=== PATIENT | female | born 1990 | race American Indian/Alaskan Native ===

== ENCOUNTER 2019-07-12 00:03 | Inpatient (IN) | payer MEDICAID, OTHER ==
[~2019-07-12 00:03] MED LIST: Acetaminophen 325 MG Tab PO PRN; Carboprost Tromethamine 250 MCG/1 ML Amp IM PRN; Lidocaine 1% 30 ML SDV INJECT PRN; Methylergonovine 0.2 MG/1 ML Amp IM PRN; Misoprostol 400 MCG (4 X 100 MCG TAB) RECTAL PRN; Oxytocin/Normal Saline 30 UNIT/500 ML BAG IV SCH; Sodium Chloride 0.9% 10 ML Syringe FLUSH PRN; Tranexamic Acid 1,000 MG in Sodium Chloride 0.9% 100 ML IV PRN
[2019-07-12] MEDS: Misoprostol 25 MCG (1/4 of 100 MCG) Tab VAG PRN ×4 (01:40→21:03)
--- NOTE | 2019-07-12 02:19 | OBOUT ---
DATE: 07/12/2019 TIME OF NST: 39 to 54. REASON FOR NST: 1. Intrauterine at 39 weeks by 6-2/7 week's ultrasound. 2. Gestational diabetes mellitus. 3. GBS negative. 4. Rubella nonimmune. 5. G1, P0. NST INTERPRETATION: During this time period, heart tone baseline is approximately 145 to 150 and at least two 15 x 15 beats per minute accelerations noted in a broken pattern making this strip reactive as well as also noted to be reassuring. Tocometer reveals potential of 1 contraction not felt by patient. ASSESSMENT: 1. Nonstress test, reactive and reassuring. 2. Tocometer with 1 contraction, not felt by the patient. PLAN: Please see admit history and physical done through [facility] for this. Records were called for and reviewed and supplemented by patient history as well as review of systems fully reviewed and felt to be noncontributory as noted. Blood pressure 116/70, heart rate 88, temperature 97. Shortly after NST was performed, vaginal exam revealed to be finger tip, 56% effaced, -1, -2 station, vertex suspected, and Cytotec 25 mcg was placed vaginally. Of note, blood sugar was 81 upon admission. Please see admit history and physical for other details as well. Continue with Cytotec and following clinically and closely. [facility] /[id number]
[2019-07-12] MEDS: Oxytocin/Normal Saline 30 UNIT/500 ML BAG IV SCH (12:55)
[2019-07-12] MEDS: Lactated Ringers 1,000 ML IV SCH (12:59)
[2019-07-12] MEDS ORDERED: hydrOXYzine HCl 25 MG Tab PO PRN (21:23)
[2019-07-12] MEDS: hydrOXYzine HCl 25 MG Tab PO PRN (23:24)
[2019-07-13] MEDS: Misoprostol 25 MCG (1/4 of 100 MCG) Tab VAG PRN ×4 (01:19→13:30)
--- NOTE | 2019-07-13 09:45 | PN ---
DATE: 07/12/2019 SUBJECTIVE: The patient feels her contractions, lower abdomen and back region, rates them 5 to 6 out of 10. Pitocin was started and is at 4 milliunits per minute currently. heart tones in the 140s range and felt to be reactive and reassuring. Tocometer reveals, when reading, contractions every 1-1/2 to 3 minutes apart. Vaginal exam reveals her to be 1.5 cm, 60% effaced, negative 1 station, vertex suspected, and bag of water felt. ASSESSMENT AND PLAN: Intrauterine at 39 weeks by 6-2/7 weeks' ultrasound, complicated by gestational diabetes mellitus, now status post Cytotec x2 and then some low-dose Pitocin today. We will proceed with stopping the Pitocin to see if contractions slow down and consider repeat Cytotec dosing. This was discussed with the patient. She understands and agrees with the above treatment plan. [facility] /[id number]
--- NOTE | 2019-07-13 11:07 | PCM.PREANE ---
Preanesthetic Assessment - Anesthesia/Transfusion/Family Hx Anesthesia History: No Prior Anesthesia Family History of Anesthesia Reaction: No Transfusion History: No Prior Transfusion(s) - Review of Systems General: No Symptoms, Other Pulmonary: No Symptoms Cardiovascular: No Symptoms Gastrointestinal: No Symptoms Neurological: No Symptoms Other: Reports: None - Physical Assessment NPO Status Date: 07/13/19 NPO Status Time: 08:00 Vital Signs: Last Vital Signs Temp 98.7 F 07/13/19 08:16 Pulse 72 07/13/19 09:35 Resp 18 07/13/19 09:35 BP 120/65 07/13/19 09:35 Pulse Ox Height: 5 ft 1 in Weight: 210 lb (BMI= 41.0) ASA Class: 3 Mental Status: Alert & Oriented x3 Airway Class: Mallampati = 3 Dentition: Reports: Normal Dentition Thyro-Mental Finger Breadths: 3 Mouth Opening Finger Breadths: 3 ROM/Head Extension: Full Lungs: Clear to Auscultation Cardiovascular: Regular Rate - Lab Values: Laboratory Last Values WBC 10.9 10^3/uL (5.0-10.0) H 07/12/19 01:18 RBC 3.81 10^6/uL (4.2-5.4) L 07/12/19 01:18 Hgb 11.5 g/dL (12.0-16.0) L 07/12/19 01:18 Hct 34.8 % (37.0-47.0) L 07/12/19 01:18 MCV 91.3 fL (80-100) 07/12/19 01:18 MCH 30.2 pg (27.0-34.0) 07/12/19 01:18 MCHC 33.0 g/dL (33.0-35.0) 07/12/19 01:18 Plt Count 338 10^3/uL (150-450) 07/12/19 01:18 POC Glucose 84 mg/dl (70-105) 07/13/19 07:46 SARS-CoV-2 RNA (RT-PCR) Negative (NEGATIVE) 07/12/19 00:20 - Allergies Allergies/Adverse Reactions: Allergies Allergy/AdvReac Type Severity Reaction Status Date / Time No Known Allergies Allergy Verified 07/12/19 01:04 - Anesthesia Plan Free Text/Narrative:: SAB - Acknowledgements Anesthesia Type Planned: Spinal Pt an Appropriate Candidate for the Planned Anesthesia: Yes Alternatives and Risks of Anesthesia Discussed w Pt/Guardian: Yes Pt/Guardian Understands and Agrees with Anesthesia Plan: Yes PreAnesthesia Questionnaire Genitourinary History: Reports: Renal Calculus, Other (See Below) Other Genitourinary History: kidney stones- laser 2010 [employer] 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: Endocrine/Metabolic History: Reports: Diabetes, Type II ( related) - Past Surgical History HEENT Surgical History: Reports: Oral Surgery, Other (See Below) Other HEENT Surgeries/Procedures: wisdom teeth removed 2017 - SUBSTANCE USE Smoking Status *Q: Former Smoker Tobacco Use Within Last Twelve Months: Cigarettes Recreational Drug Use History: No - HOME MEDS Home Medications: Home Meds Pnv No.95/Ferrous Fum/Folic AC [ Caplet] 1 tab PO DAILY 07/02/19 [ History] - CURRENT (IN HOUSE) MEDS Current Meds: Current Medications Acetaminophen (Tylenol) 650 mg PO Q4H PRN PRN Reason: Pain (Mild 1-3) and fever Acetaminophen (Tylenol) 650 mg PO Q4H PRN PRN Reason: Pain/Fever Carboprost Tromethamine (Hemabate Ds) 250 mcg IM ASDIRECTED PRN PRN Reason: HEMORRHAGE Hydroxyzine HCl (Atarax) 50 mg PO Q6H PRN PRN Reason: Itching Last Admin: 07/12/19 23:24 Dose: 50 mg Lactated Ringer's (Ringers, Lactated) 1,000 mls @ 125 mls/hr IV ASDIRECTED GERA Last Admin: 07/12/19 12:59 Dose: 125 mls/hr Oxytocin/Sodium Chloride (Pitocin In Ns 30 Unit/500 Ml) 30 unit in 500 mls @ 2 mls/hr IV TITRATE GERA; Protocol Last Titration: 07/12/19 16:40 Dose: 0 mls/hr Oxytocin/Sodium Chloride (Pitocin In Ns 30 Unit/500 Ml) 30 unit in 500 mls @ 2 mls/hr IV TITRATE GERA; Protocol Tranexamic Acid 1,000 mg/ (Sodium Chloride) 110 mls @ 660 mls/hr IV ONETIME PRN PRN Reason: Bleeding Lidocaine HCl (Xylocaine-Mpf 1%) 30 ml INJECT ASDIRECTED PRN PRN Reason: Perineal Repair Methylergonovine Maleate (Methergine) 0.2 mg IM ASDIRECTED PRN PRN Reason: Hemorrhage Misoprostol (Cytotec) 800 mcg RECTAL ASDIRECTED PRN PRN Reason: Hemorrhage Misoprostol (Cytotec) 25 mcg VAG Q4H PRN PRN Reason: cervical ripening Last Admin: 07/13/19 09:35 Dose: 25 mcg Ondansetron HCl (Zofran) 4 mg IVPUSH Q4H PRN PRN Reason: Nausea/Vomiting Sodium Chloride (Saline Flush) 10 ml FLUSH ASDIRECTED PRN PRN Reason: Keep Vein Open Discontinued Medications Lactated Ringer's (Ringers, Lactated) 1,000 mls @ 500 mls/hr IV BOLUS ONE Stop: 07/12/19 02:00
--- NOTE | 2019-07-13 11:53 | PN ---
DATE: 07/13/2019 SUBJECTIVE: The patient has been feeling her contractions throughout the night. She has been sleeping through some, other times, they wake her up, felt in the upper abdomen, lower abdomen and back. OBJECTIVE: VITAL SIGNS: Last night vitals, temperature 97.6, heart rate 64, blood pressure 120/76. Blood sugar was recently at 84, this morning fasting. VAGINAL: Reveals her to be 1.5 cm, 70% effaced, -1 to -2 station, vertex suspected, and essentially unchanged from the night before. ASSESSMENT AND PLAN: Term now at 39-1/7 weeks by 6-2/7 week ultrasound, complicated by gestational diabetes mellitus, GBS negative, rubella nonimmune, and G1, P0. The patient is now status post Cytotec x4, yesterday 2 since midnight on the , and most likely we will repeat another Cytotec 1 to 2 times today if need be based on how well she does with contractions and if she continues to have contractions or not. The patient also did receive some Pitocin yesterday, low-dose to see if this would help and we will continue to follow closely at this point in time. I did discuss with the patient limited change in her cervix, max dose of 8 doses of Cytotec per our order set and following closely at this point in time with limited change overnight despite these interventions. She understands and agrees and we will continue to follow clinically and closely at this point in time. [facility] /[id number]
[2019-07-13] MEDS: Lactated Ringers 1,000 ML IV SCH ×2 (17:19→23:38)
[2019-07-13] MEDS: hydrOXYzine HCl 25 MG Tab PO PRN (20:46)
[2019-07-13] MEDS: fentaNYL 100 MCG/2 ML SDV IVPUSH PRN ×2 (22:09→23:37)
[2019-07-13] MEDS: Ondansetron 4 MG/2 ML SDV IVPUSH PRN (23:13)
[2019-07-14] MEDS: fentaNYL 100 MCG/2 ML SDV IVPUSH PRN (00:39)
--- NOTE | 2019-07-14 01:02 | PN ---
DATE: 07/14/2019 SUBJECTIVE: The patient's contractions are getting stronger. She is breathing through them. Lying on her side. I was called by nurses for difficulty detecting heart tones and contractions with position of comfort for the patient. Pitocin at 12 milliunits per minute. OBJECTIVE: Vital Signs: Blood pressure 125/63. General Appearance: Lying on her side, breathing through contractions, but answering questions appropriately in between. heart tones in the 120s to 130s range, and accelerations noted with vaginal exam and evaluation thereafter. Tocometer, difficulty reading contractions with patient lying on her side. Vaginal exam reveals her to be 2 cm, 95% effaced, 0 station, vertex suspected, and IUPC and scalp electrode applied and inserted after discussion with patient. ASSESSMENT: Now interim at 39 and 2/7 weeks by 6-2/7 weeks' ultrasound. Gestational diabetic. GBS negative. Rubella nonimmune. G1, P0. With meconium-stained fluid. Now status post Cytotec x8, Pitocin augmentation, artificial rupture of membranes, and IUPC and FSE as above. PLAN: Internal monitors have been applied. We will continue to follow clinically and closely at this point in time. Determine MVUs, continue Pitocin augmentation, and follow closely. Pain medicines have been ordered as well. [facility] /[id number]
[2019-07-14] MEDS: Lactated Ringers 1,000 ML IV SCH ×8 (02:09→21:50)
[2019-07-14] MEDS ORDERED: EPINEPHrine 1 MG/1 ML Amp ONE ×2 (02:23→09:55)
--- NOTE | 2019-07-14 02:58 | PCM.PRNOTE ---
- Free Text/Narrative Note: IT Consent confirmed. 022 Room. Sitting position. Time out completed. Questions answered. Back prepped with betadine NSF Lidocaine 1% skin wheal L3/4 times 1 +CSF - HEME - Parasthesia 0.8cc Marcaine 0.75% Precedex 10 mcg Sufenta 15 mcg Epi 0.1 Normal saline 0.7mL Excellent result. Pt. tolerated well. Complete 232. All sharps accounted for and disposed of Lot#[id number] EXP [id number]
[2019-07-14] MEDS ORDERED: ePHEDrine 50 MG/ML SDV ONE (03:02)
--- NOTE | 2019-07-14 08:27 | PN ---
DATE: 07/13/2019 SUBJECTIVE: The patient is still feeling her contractions. They feel a little bit worse, felt in the lower abdomen. Pitocin has been started at approximately 5:30 p.m. tonight, 4 hours after her 8th dose of Cytotec during this stay. OBJECTIVE: heart tones in the 130s to 140s range. Acceleration noted with vaginal exam. Tocometer reveals contractions every 2 to 3 minutes at the current time. Vaginal exam does reveal her to be 1.5 cm, 60% to 75% effaced, 0 to negative 1 station, vertex suspected, and artificial rupture of membranes done after discussion with the patient yielding copious amounts of meconium- stained fluid. ASSESSMENT: Intrauterine now at 39-1/7 weeks by 6-2/7 weeks' ultrasound, complicated by gestational diabetes mellitus with sugars fasting, and upon admission being under control in a group B Streptococcus negative, G1, P0, rubella nonimmune status, with now newly diagnosed meconium-stained fluid. PLAN: We will follow closely at this point in time and did discuss with the patient following maternal and status closely and did discuss diagnosis, prognosis in regard to meconium-stained fluid, and we will continue to follow up closely at this point in time. The patient understands and agrees with the above treatment plan. We will continue Pitocin, and as she is requesting something for pain in the future, we will write for fentanyl. [facility] /[id number]
[2019-07-14] MEDS: Lactated Ringers 1,000 ML IV ONE ×2 (08:29→09:29)
[2019-07-14] MEDS: Ondansetron 4 MG/2 ML SDV IVPUSH PRN ×2 (09:32→22:30)
[2019-07-14] MEDS ORDERED: Sodium Chloride 0.9% 10 ML Syringe ONE (09:56)
--- NOTE | 2019-07-14 10:47 | PCM.PRNOTE ---
- Free Text/Narrative Note: IT in room 0955 Time out complete Back prepped and draped NSF with betadine Lidocaine skin wheal 1% IT @ L 3/4 24ga 4 inch +CSF - HEME - parathesia patient tolerated well All needles accounted for and disposed. Procedure completed at 1012
[2019-07-14] MEDS ORDERED: ceFAZolin 2 GM in Premix Bag 1 BAG IV ONE (14:41)
[2019-07-14] MEDS ORDERED: Citric Acid/Sodium Citrate Solution 30 ML Cup PO ONE (14:41)
[2019-07-14] MEDS ORDERED: diphenhydrAMINE 50 MG/ML SDV IVPUSH PRN (14:42)
[2019-07-14] MEDS ORDERED: Acetaminophen/oxyCODONE 325-5 MG Tab PO PRN (14:42)
[2019-07-14] MEDS ORDERED: Naloxone 2 MG/2 ML Syringe IVPUSH PRN (14:42)
[2019-07-14] MEDS ORDERED: ePHEDrine 50 MG/ML SDV IVPUSH PRN (14:42)
[2019-07-14] MEDS ORDERED: Methylergonovine 0.2 MG/1 ML Amp IM PRN (14:42)
[2019-07-14] MEDS ORDERED: Oxytocin/Normal Saline 30 UNIT/500 ML BAG ONE ×2 (14:43→14:46)
[2019-07-14] MEDS ORDERED: Ketorolac 30 MG/ML SDV IVPUSH SCH ×2 (14:45→22:00)
[2019-07-14] MEDS ORDERED: Lactated Ringers 1,000 ML IV SCH (14:45)
[2019-07-14] MEDS ORDERED: Rocuronium 100 MG/10 ML MDV ONE (14:46)
[2019-07-14] MEDS ORDERED: Propofol 200 MG/20 ML SDV ONE (14:46)
[2019-07-14] MEDS ORDERED: Succinylcholine 200 MG/10 ML MDV ONE (14:46)
[2019-07-14] MEDS ORDERED: Methylergonovine 0.2 MG/1 ML Amp ONE (15:15)
[2019-07-14] MEDS ORDERED: Carboprost Tromethamine 250 MCG/1 ML Amp ONE (15:15)
[2019-07-14] MEDS ORDERED: Misoprostol 400 MCG (4 X 100 MCG TAB) ONE (15:19)
[2019-07-14] MEDS: Oxytocin/Normal Saline 30 UNIT/500 ML BAG IV SCH (16:15)
[2019-07-14] MEDS ORDERED: EPINEPHrine 1 MG/ML SDV ONE (16:35)
[2019-07-14] MEDS ORDERED: Dexmedetomidine 200 MCG/2 ML SDV IV ONE (16:35)
[2019-07-14] MEDS ORDERED: Dexmedetomidine 200 MCG/2 ML SDV ONE (16:36)
[2019-07-14] MEDS ORDERED: Ketorolac 30 MG/ML SDV IVPUSH ONE (17:30)
[2019-07-14] MEDS: Simethicone 80 MG Tab.Chew PO SCH ×2 (17:32→20:17)
[2019-07-14] MEDS: cefTRIAXone 1 GM in Sodium Chloride 0.9% 50 ML IV SCH (18:07)
--- NOTE | 2019-07-14 19:36 | PN ---
DATE: 07/14/2019 SUBJECTIVE: The patient is sleeping after her intrathecal. OBJECTIVE: heart tones in the 130s to 140s range. There are some decelerations that appear to be early in nature occasionally with contractions and some variables as well. IUPC is reading 145s to 140s MVUs on average. Vaginal exam reveals her to be complete, 0 station, vertex suspected with marked caput. ASSESSMENT: Second stage of labor in a G1, P0, intrauterine at 39 and 2/7 weeks complicated by gestational diabetes mellitus, being rubella nonimmune and having meconium-stained fluid. PLAN: We will continue with Pitocin for adequate MVU views and consider pushing in the near future. I did discuss with her entering the second stage of labor at this point in time. [facility] /[id number] MTDHayder
[2019-07-14] MEDS: hydrOXYzine HCl 25 MG Tab PO PRN (20:15)
[2019-07-14] MEDS ORDERED: fentaNYL 100 MCG/2 ML SDV IVPUSH ONE (22:22)
[2019-07-14] MEDS: Ketorolac 30 MG/ML SDV IVPUSH SCH (23:20)
[2019-07-15] MEDS: Acetaminophen/oxyCODONE 325-5 MG Tab PO PRN ×5 (00:37→20:45)
[2019-07-15] MEDS: Lactated Ringers 1,000 ML IV SCH ×3 (00:38→17:18)
[2019-07-15] MEDS ORDERED: fentaNYL 100 MCG/2 ML SDV IVPUSH ONE (02:46)
[2019-07-15] MEDS: hydrOXYzine HCl 25 MG Tab PO PRN (02:54)
[2019-07-15] MEDS: Ketorolac 30 MG/ML SDV IVPUSH SCH ×2 (05:35→11:50)
--- NOTE | 2019-07-15 08:04 | PN ---
DATE: 07/15/2019 Postop day #1. SUBJECTIVE: The patient has tolerated some liquids through the night. She has had some pain medications to help with her abdominal pain. She is unsure she has been passing flatus. Block is still in place. OBJECTIVE: Vital Signs: Temperature 99.2, heart rate 128, blood pressure 113/60, respiratory rate 16. Lungs: Clear to auscultation bilaterally. Heart: S1, S2. Regular rate and rhythm at this time. Abdomen: Firm uterus, -1 to -2 below umbilicus. Aquacel dressing dry and intact. SCDs and RIDGE hose are on. LABORATORY DATA: Last night, at approximately 10 p.m., white cell count 12.7, hemoglobin 9.4, platelets 206. This morning, white cell count 16.5, hemoglobin 9.1, and platelets are 182. Compared to predelivery, hemoglobin 11.5 and platelets are 338. Urine output has been followed closely. She did require some boluses through the night. Last urine output listed from 4 to 6 a.m. was 100 mL. ASSESSMENT: Postop day #1, status post primary low transverse complicated by hemorrhage with an EBL of 1200 mL. Uterine atony requiring Methergine, Hemabate, and Cytotec with a nonreassuring status and suspected uterine rupture, small, which was reviewed with MEDICINE AIDE/Dr. Waller. He has recommended that the patient is not a candidate and next should be delivered at 37 weeks or when in labor or deliver sooner. This was discussed with the patient and her male partner again today and was discussed with them last night. PLAN: We will continue to follow clinically and closely. Work on ambulation, incentive spirometry today, and watch urine output as well. The patient understands and agrees with the above treatment plan. [facility] /[id number]
[2019-07-15] MEDS: Ferrous Sulfate 325 MG Tab PO SCH (08:11)
[2019-07-15] MEDS: Prenatal Multivitamin with Calcium/Folic Acid/Iron Tab PO SCH (08:11)
[2019-07-15] MEDS: Simethicone 80 MG Tab.Chew PO SCH ×4 (08:11→20:46)
--- NOTE | 2019-07-15 08:25 | PN ---
DATE: 07/14/2019 SUBJECTIVE: The patient has been pushing now for over 2 hours. I was called in urgently for concerns with a deceleration in the heart rate. OBJECTIVE: heart tone baseline now is in the 160s to 170s. Prior to this, was in the 160s range and there was a 10-minute deceleration. During this time period, Pitocin was turned off. Lactated Ringer bolus was given. Oxygen had been started, and there was a return to baseline. Previous review of some of the strip does reveal possibility of 2 subtle late decelerations around 1350 hours. Vaginal exam reveals her to be complete with marked caput and no descent noted from previous evaluation when she started the second stage of labor around noon. Tocometer reveals contractions every couple of minutes. ASSESSMENT: Intrauterine now at 39 and 2/7 weeks by 6 and 2/7 weeks with nonreassuring status as evidenced by late decelerations, tachycardia, and a 10-minute deceleration and noted to have almost 18 hours since artificial rupture membranes and nearing 3 hours in the second stage of labor with intrathecal worn off. I did discuss with patient and her male partner proceeding with primary low transverse section. I did discuss with them the risks, benefits, alternatives, and complications of section, including, but not limited to, infection, bleeding, damage to internal organs such as bowel, bladder, tubes, uterus, ovaries, and sometimes fetus, rarely needing a blood transfusion or further surgery, and even rarer maternal or . She understands, agrees, and wishes to proceed. Verbal and written consents were obtained and questions were answered. We will proceed as soon as the OR crew is ready and available. Due to her gestational diabetes mellitus, we will check a blood sugar before we go to the operating room. Her sugars have been controlled while she has been in the hospital. She is GBS negative, has meconium-stained fluid, and is rubella nonimmune in a primip for her other risk factors. Last blood pressure 142/78, heart rate 104. She is breathing through her contractions and pain during this time period. PLAN: We will proceed to the OR as soon as crew is ready and available. Please see above. The patient and her male partner understand and agree. [facility] /[id number]
--- NOTE | 2019-07-15 08:46 | OR ---
DATE: 07/14/2019 PREOPERATIVE DIAGNOSES: 1. Intrauterine at 39-2/7 weeks by 6-2/7-week ultrasound. 2. Nonreassuring status. 3. Meconium-stained fluid. 4. Nearing prolonged second stage of labor. 5. Rupture of membranes greater than 18 hours. 6. Gestational diabetes mellitus. 7. Group B Streptococcus negative. 8. Rubella nonimmune. 9. G1, P0. POSTOPERATIVE DIAGNOSES: 1. Intrauterine at 39-2/7 weeks by 6-2/7-week ultrasound-delivered. 2. Nonreassuring status. 3. Meconium-stained fluid. 4. Nearing prolonged second stage of labor. 5. Rupture of membranes greater than 18 hours. 6. Gestational diabetes mellitus. 7. Group B Streptococcus negative. 8. Rubella nonimmune. 9. G1, P0. 10. hemorrhage with estimated blood loss of 1200 mL. 11.Hematuria prior to start of the surgery, clearing at the end of the surgery. 12.Uterine wall abnormality with meconium-stained fluid traversing through what appeared to be the broad ligament, posterior wall, lining wall of the uterus, and over lower uterine segment with mild blood clot in this area. discussed with Dr. Waller air carrier inspector after the case and suspect small uterine rupture 13.Right lateral sulcus tear. 14.Nuchal cord x1, tight, that was reduced bluntly with delivery. 15.Uterine atony, requiring Methergine, Hemabate, and Cytotec. 16.Small uterine rupture 17.Right lateral sulcus tear 18.NOT A CANDIDATE WITH RECOMMENDATION TO DELIVER AT 37 WEEKS OR WITH LABOR WHICHEVER COMES FIRST WITH REPEAT SECTION WITH NEXT DELIVERY-DISCUSSED WITH PATIENT, HER PARENTS AND MALE PARTNER PROCEDURE PERFORMED: Leading up to the surgery, nonstress test followed by Cytotec x4, and Pitocin augmentation on 07/12/2019, followed by 4 doses of Cytotec on 07/13/2019 with Pitocin continued through date of surgery. Artificial rupture membranes on 07/13/2019. Intrauterine pressure catheter and scalp electrode placed on 07/14/2019. All per Dr. De La Paz. This was followed by procedure below of primary low-transverse section and repair of right lateral sulcus tear incorporated in the lower uterine segment repair. PEDIATRIC CLINICAL DIETICIAN: Steph Rosa MD, and then Luciana Rosales MD, called in for further evaluation and assistance. ANESTHESIA: Spinal. ESTIMATED BLOOD LOSS: 1200 mL. IV FLUIDS: 400 mL. URINE OUTPUT: 75 mL and clearing from initial hematuria noted when arriving to the OR throughout the surgery timeline START: 1509 UTERINE: 1512 DELIVERY: 1512 STOP: 1605 FINDINGS:Female APGARS 5,7, and 8, weight 2700 grams and findings as noted above and below and suspect small uterine rupture after discussing case with dr. waller. pictures attached to chart. DESCRIPTION OF PROCEDURE: After proper consent was obtained, the patient was brought to the operating room where spinal anesthetic was administered. Block was placed in preop under sterile conditions. Hematuria was noted with this. It was grossly red and clearing throughout the case over time. Abdomen was prepped and draped in normal sterile fashion using Betadine for timeliness, and the patient was placed in supine position with left lateral tilt. A skin incision was then made over lower abdomen in a transverse Pfannenstiel- type fashion. This was carried down the fascia and scored in the midline. Subcutaneous tissue raked laterally with Carolina retractor, and fascial incision was extended in transverse fashion using curved Tsai's. Kalli clamps x2 were used to grasp the superior aspect of the fascia, and rectus muscles were dissected from the fascia using sharp and blunt technique. In a similar fashion, Kalli clamps were used to grasp the inferior portion of the incision, and rectus and pyramidalis muscle were dissected from fascia using sharp and blunt technique. Rectus muscles were in the midline with blunt technique. Abdominal cavity was entered in blunt technique, and incision was extended superiorly and inferiorly with blunt technique. Nico O large retractor was then introduced and used. Over the region of lower uterine segment and right lateral portion of the uterus on this side, there was noted to be suspected thin lower uterine segment with window that appeared dark in nature as if vertex was through there as well as meconium fluid. Incision was made on the lower uterine segment around this area. Meconium-stained fluid returned as well as some mild blood clot, and there was a second layer below this, that was the lower uterine segment. This was incised, and uterus was entered sharply. Meconium-stained fluid continued to present. Uterine incision was then extended in a transverse fashion using blunt technique. vertex was then delivered up from the pelvis and brought through the incision, followed by rest of the infant with a nuchal cord x1 that was tight and reduced bluntly with delivery. Mouth and nares were suctioned. Cord was doubly clamped and cut, and infant was brought to team for resuscitation. Then, approximately 10 mL of cord blood was obtained for labs. Placenta then delivered with gentle cord traction and fundal massage without difficulty. Uterine cavity was then cleared of all blood clots and debris with lap sponge. It was then noted that there appeared to be traversing meconium- stained fluid in the peritoneal/serosal layer around the uterus into the broad ligament region and posteriorly on the right side. Pictures were taken and will be attached to the chart when available. Dr. Rosales was called at this time due to the abnormalities noted, and she donned sterile gown and gloves, and assisted with the remainder of the surgery as well as Dr. Romero who was already present. Careful evaluation of the uterus did reveal posteriorly, felt on the right there was a thinning area, but the integrity of the uterus was noted throughout the wall that as best could be discerned other than over this posterior right uterine horn region which felt intact. Care was made not to disrupt these areas where meconium- stained fluid was in a plane around the uterus and broad ligament region on the right. Uterine incision on the right side was then noted to have a right lateral sulcus tear and was deep, and with assistance, corner was evaluated, located, and a stitch was applied under direct visualization over this area. The sulcus tear was then repaired using 1-0 Vicryl and brought to the lower uterine incision, where repair was incorporated into the uterine incision repair and required 1-0 Vicryl with 2 needles/stitch sets. Uterine atony was noted, and Methergine, Hemabate, and 800 mcg of Cytotec were given with 800 mcg given rectally and the other medicines given intramuscularly. Please see anesthesia's notes as well Thereafter, further evaluation of the right lateral sulcus region revealed some minimal bleeding. [id number] stitch was applied where bleeding was noted, and bleeding was significantly slowed. Despite this, there was some minimal oozing, and therefore Surgicel was called for and applied over this area. Minimal bleeding was noted thereafter. During this time period with inspection of the uterus, it was exteriorized. Nico O retractor was removed, and we did use bladder blade and Carolina retractors as well as blunt retractors with fingers for evaluation of the uterine anatomy. Before uterus was returned to the abdomen, initially there was only minimal bleeding over right lateral sulcus region. Irrigation ensued after uterus was returned to the abdomen, and minimal bleeding was noted over the right lateral sulcus tear. . [id number] stitch was applied over this area. Bleeding had all but stopped with minimal oozing, and Surgicel was applied over this area, and bleeding was decreased thereafter and clotting was noted. Third and final inspection of uterine incision and anterior cul-de-sac revealed hemostasis. Rectus muscles were then evaluated and present in the midline and came together well. Subsequently, subfascial tissue was found to be hemostatic. Fascia closed in a running fashion and tied at lateral margin with 0 looped PDS. Subcutaneous tissue was irrigated copiously and hemostasis reassured. Skin was reapproximated with medium nohelia. Sterile Aquacel dressing was applied. Uterine fundus was firm and massaged at the conclusion of the case at -2 below the umbilicus. Sponge, lap, and needle counts were correct. The patient received 2 g of Ancef preoperatively. Received Pitocin per protocol, will receive Toradol at the conclusion of the case for pain control, and will receive prophylactic antibiotics due to the nature of her sulcus tear and extended evaluations. Mother and are currently stable at the time of dictation. [facility] /[id number] MTDD
--- NOTE | 2019-07-15 08:49 | OR ---
DATE: 07/14/2019 ADDENDUM: POSTOPERATIVE DIAGNOSIS: Discussed the case with Dr. Waller, suspect uterine rupture-small with recommendation to deliver at 37 weeks with next delivery, not allowed to labor, and is NOT A CANDIDATE. Call made with Dr. Waller to discuss the case and he suspects that this was a small uterine rupture with meconium-stained fluid traversing the plane around the uterus superficially on the right side posteriorly and over the lower uterine segment region. For further delivery did discuss with father recommending seeing an TYPEWRITER RIBBON WINDER prior to becoming for evaluation as well as with her next seeing an TYPEWRITER RIBBON WINDER for further evaluation and management. Plans will be discussed with the patient and plans were discussed with father and questions were answered. [facility] /[id number]
[2019-07-15] MEDS ORDERED: Measles, Mumps & Rubella Vaccine 0.5 ML SDV SUBCUT ONE (09:00)
--- NOTE | 2019-07-15 09:36 | PCM48HPAN ---
Post Anesthesia Note - EVALUATION WITHIN 48HRS OF ANESTHETIC Vital Signs in Normal Range: Yes Patient Participated in Evaluation: Yes Respiratory Function Stable: Yes Airway Patent: Yes Cardiovascular Function Stable: Yes Hydration Status Stable: Yes Pain Control Satisfactory: Yes Nausea and Vomiting Control Satisfactory: Yes Mental Status Recovered: Yes Vital Signs: Last Vital Signs Temp 97.9 F 07/15/19 08:00 Pulse 114 H 07/15/19 08:00 Resp 18 07/15/19 08:00 BP 115/56 L 07/15/19 08:00 Pulse Ox 96 07/15/19 08:00
[2019-07-15] MEDS: Docusate Sodium 100 MG Cap PO PRN ×2 (09:57→19:37)
[2019-07-15] MEDS: cefTRIAXone 1 GM in Sodium Chloride 0.9% 50 ML IV SCH (16:44)
[2019-07-15] MEDS: Ibuprofen 800 MG Tab PO PRN (19:38)
[2019-07-16] MEDS: Acetaminophen/oxyCODONE 325-5 MG Tab PO PRN ×3 (01:13→19:45)
[2019-07-16] MEDS: Ibuprofen 800 MG Tab PO PRN ×3 (05:09→21:23)
--- NOTE | 2019-07-16 08:36 | PN ---
DATE: 07/16/2019 Postop day #2, status post primary low transverse complicated by hemorrhage, uterine atony, right lateral sulcus tear, and small uterine rupture. SUBJECTIVE: The patient is tolerating p.o.'s, ambulating, urinating, passing flatus. She has had some tachycardia noted throughout the night. OBJECTIVE: Vital Signs: Last set of vitals: Temperature 98, heart rate between 92 and 102, blood pressure 105/62. Appearance: No apparent distress. Sitting upright. Lungs: Clear to auscultation bilaterally. Heart: S1, S2. Regular rate and rhythm. Minor tachycardia noted, however. Abdomen: Firm uterus -1 to -2 below umbilicus. Aquacel dressing appears dry and intact. Her SCD hose are on. LABORATORY DATA: Reveals a white cell count of 12.8, hemoglobin dropped down to 7.7, platelets of 187. Predelivery hemoglobin was 11.5. Hemoglobin yesterday was 9.1. ASSESSMENT AND PLAN: 1. Postoperative day #2, status post primary low transverse section. 2. hemorrhage with an Estimated blood lossof 1200 mL complicated by uterine atony and a small uterine rupture. 3. Anemia, acute blood loss. Hemoglobin has dropped down to 7.7. I believe the previous hemoglobins were falsely elevated due to her concentrated status while she was having decreased urine output and required multiple boluses. Now that it has equilibrated over a period of time, her hemoglobin is down to 7.7, and with her tachycardia, will recommend proceeding with transfusion of 2 units of packed red blood cells. I did discuss the risks, benefits, alternatives, complications of this. She understands and agrees and wishes to proceed. Verbal and written consents were obtained. Questions were answered. We will proceed with 2 units of packed red blood cells and repeat hemoglobin approximately 6 hours after that and in the morning tomorrow and plan on potential discharge tomorrow if stable. The patient understands and agrees with the above treatment plan. [facility] /[id number]
[2019-07-16] MEDS: Prenatal Multivitamin with Calcium/Folic Acid/Iron Tab PO SCH (09:29)
[2019-07-16] MEDS: Docusate Sodium 100 MG Cap PO PRN ×2 (09:29→19:44)
[2019-07-16] MEDS: Ferrous Sulfate 325 MG Tab PO SCH (09:34)
[2019-07-16] MEDS: Simethicone 80 MG Tab.Chew PO SCH ×4 (09:34→21:23)
[2019-07-16] MEDS ORDERED: Oxytocin/Normal Saline 30 UNIT/500 ML BAG IV ONE (11:23)
[2019-07-17] MEDS: Acetaminophen/oxyCODONE 325-5 MG Tab PO PRN (04:14)
[2019-07-17] MEDS: Simethicone 80 MG Tab.Chew PO SCH (08:43)
[2019-07-17] MEDS: Ibuprofen 800 MG Tab PO PRN (08:43)
[2019-07-17] MEDS: Prenatal Multivitamin with Calcium/Folic Acid/Iron Tab PO SCH (08:43)
[2019-07-17] MEDS: Ferrous Sulfate 325 MG Tab PO SCH (08:43)
[2019-07-17] MEDS: Docusate Sodium 100 MG Cap PO PRN (08:43)
--- NOTE | 2019-07-17 12:47 | DISCH ---
ADMIT DIAGNOSES: 1. Intrauterine at 39 weeks by 6-2/7 weeks, delivered at 39 and 2/7 weeks. 2. Gestational diabetes mellitus. 3. GBS negative. 4. Rubella nonimmune. 5. G1, P0. DISCHARGE DIAGNOSES: 1. Intrauterine at 39 weeks by 6-2/7 weeks - delivered at 39 and 2/7 weeks. 2. Gestational diabetes mellitus. 3. GBS negative. 4. Rubella nonimmune. 5. G1, P0. 6. Nonreassuring status. 7. Rupture of membranes approximately greater than 18 hours prior to delivery. 8. Meconium-stained fluid. 9. Right lateral sulcus tear. 10. hemorrhage with an EBL 1200 mL. 11.Hematuria prior to the start of her , clearing afterwards. 12.Nuchal cord x1, reduced bluntly at delivery. 13.Uterine atony requiring Methergine, Hemabate, and Cytotec. 14.Small uterine rupture. Discussed with Dr. Waller, EMERGENCY CREW SUPERVISOR, who recommends the patient is not a candidate and with next she should be delivered at 37 weeks or when goes into labor, whichever is sooner. PROCEDURES PERFORMED: On 07/12/2019 NST, Cytotec x4, and Pitocin augmentation. On 07/13/2019, 4 doses of Cytotec and Pitocin augmentation, as well as continued Pitocin through 07/14/2019. Artificial rupture of membranes on 07/13/2019, IUPC and FSE placement on 07/14/2019, followed by primary low transverse with right lateral sulcus tear repair with complications as noted above, and please see below. Person who performed the procedures was Everette De La Paz MD, Steph Romero was 1st assist on the , and Dr. Rosales was also present and called for the to help. Please see procedure note for further details. HISTORY OF PRESENT ILLNESS: Please see H and P. HOSPITAL COURSE: The patient admitted on the above date, with above diagnosis, had gestational diabetes mellitus, suspected to be diet controlled after evaluations here at the hospital during her admission. She underwent Cytotec x4 and Pitocin augmentation on 07/12/2019, followed by another 4 doses of Cytotec on 07/13/2019 with Pitocin augmentation on the same day as well as continued Pitocin on 07/14/2019. She underwent artificial rupture of membranes on 07/13/2019 and then went on to have an IUPC and FSE placement on 07/14/2019. She was found to be in the 2nd stage of labor, did push for over 2 hours, then had nonreassuring status and was brought to the OR, where spinal anesthetic was administered and primary low transverse was performed. Please see op note for further details. There was a nuchal cord x1 that was tight and reduced bluntly with delivery. She had uterine atony requiring Methergine, Hemabate, and Cytotec, and had a small uterine rupture. Please see op note in regard to this. This was discussed with Dr. Waller, as there was meconium-stained fluid traversing superficial plane around the uterus on the right and posteriorly. Postop day 1 and 2, please see progress note. Postop day #2, the patient's hemoglobin did drop down to 7.7 compared to predelivery hemoglobin of 11.5, and she was tachycardic and therefore was given 2 units of packed red blood cells on 07/16/2019. Approximately 4 to 6 hours later hemoglobin was 10 and on date of discharge hemoglobin was 10.2. Postop day #3, day of discharge, the patient was tolerating p.o., was ambulating, urinating, passing flatus, requesting discharge. PHYSICAL EXAMINATION: Vital Signs: Last set of vitals; temp 92, heart rate 94, blood pressure 117/56, respiratory rate 16. Lungs: Clear to auscultation bilaterally. Heart: S1, S2. Regular rate and rhythm. Abdomen: Firm uterus, -1 below umbilicus. Aquacel dressing dry and intact. RIDGE hose are on. LABORATORY DATA: White cell count 12, hemoglobin 10.2, platelets 235. CONDITION ON DISCHARGE COMPARED TO CONDITION ON ADMISSION: Improved. DISCHARGE INSTRUCTIONS: Diet: As tolerated. Activity: No lifting more than 20 pounds. No sit-ups or straining. Pelvic rest for the next 6 weeks with immediate return to fertility discussed with patient. Reasons to return or go to the emergency room were discussed with patient and her male partner in detail including but not limited to temperature greater than 100.4, foul-smelling discharge, red or tender breasts, increasing pain, drainage, or redness around the incision or other concerns. DISCHARGE MEDICATIONS: [id number] Tylenol and ibuprofen for pain, vitamins with iron for 6 weeks, and Percocet 5/325, 1 to 2 q.6 hours p.r.n., #20, no refills. Discussed use of medication, adverse and unwanted effects, as well as precautions with driving. I did discuss with her and her male partner that she is not considered to be a candidate at this point in time. Did discuss the importance of following up with an EMERGENCY CREW SUPERVISOR before she becomes again and potentially with her next due to her uterine rupture. Please see recommendations above under discharge diagnoses as well. FOLLOWUP: Follow up on Friday07/19/2019 for staple removal and with her baby, and did discuss importance of followup and ramifications of not doing so in regard to this as well as reason to return or go to the emergency room in regard to her . [facility] /[id number] ISAMAR
== END 2019-07-17 11:40 | disposition home or self-care (01) | DRG 787 ==
LOC: DL.OBCHECK 00:03 → UNDOADMOB 00:06 → DL.OB 00:06 → OBSVTOIN 15:12 → INTOOBSV 15:12 → DL.OB 07-14 15:12 → OBSVTOIN 07-14 15:12 → UNDODISIN 07-17 11:40
PROVIDERS: ADMIT Family Medicine; ATTEND Family Medicine
PROC: 10D00Z1 Extraction of Products of Conception, Low, Open Approach (ICD-10-PCS; principal; 2019-07-14)
PROC: 0UQG0ZZ Repair Vagina, Open Approach (ICD-10-PCS; 2019-07-14)
PROC: 10H07YZ Insertion of Other Device into Products of Conception, Via Natural or Artificial Opening (ICD-10-PCS; 2019-07-14)
PROC: 10907ZC Drainage of Amniotic Fluid, Therapeutic from Products of Conception, Via Natural or Artificial Opening (ICD-10-PCS; 2019-07-14)
PROC: 30233N1 Transfusion of Nonautologous Red Blood Cells into Peripheral Vein, Percutaneous Approach (ICD-10-PCS; 2019-07-16)
DX: O24.420 Gestational diabetes mellitus in childbirth, diet controlled (principal); O72.1 Other immediate postpartum hemorrhage; D62 Acute posthemorrhagic anemia; O71.4 Obstetric high vaginal laceration alone; Z3A.39 39 weeks gestation of pregnancy; Z37.0 Single live birth; O77.0 Labor and delivery complicated by meconium in amniotic fluid; O69.1XX0 Labor and delivery complicated by cord around neck, with compression, not applicable or unspecified; O99.02 Anemia complicating childbirth; O76 Abnormality in fetal heart rate and rhythm complicating labor and delivery; Z20.828 Contact with and (suspected) exposure to other viral communicable diseases
CPT/HCPCS: 36415; 36430; 59025; 82962; 85025; 85027; 86850; 86900; 86901; 86920; 86922; 90471; 90707; A9270-GY; J0171; J0690; J0696; J1200; J1885; J2405; J2590; J3010; J7050; J7120; P9016; U0002